=== PATIENT | male | born 1950 | race Caucasian/White ===

== ENCOUNTER 2019-02-07 10:29 | Emergency (ER) | payer MEDICARE, OTHER, SELFPAY ==
[2019-02-07] VITALS (26 sets, daily range): BP systolic 109–131; BP diastolic 59–84; PULSE 57–70; RESP 11–21; TEMP 36.7; O2SAT 95–100
--- NOTE | 2019-02-07 10:42 | ED.GENADUL_ITS ---
Discharge Plan Disposition Patient Disposition: HOME Condition: Stable Discharge Details Chief Complaint: Dizzy/Sync Clinical Impression: Medication reaction, Fall Primary Care Provider: Dahlia,Local ED Provider: Varun Russo Home Meds and New Rx's Prescriptions: Continued ascorbic acid (vitamin C) [Vitamin C] 1,000 mg Tablet 500 mg PO DAILY RF: 0 simvastatin 20 mg Tablet 20 mg PO QHS RF: 0 lisinopril 10 mg Tablet 10 mg PO DAILY RF: 0 vitamin B complex Tablet 1 tab PO DAILY RF: 0 diphenhydramine-acetaminophen [Tylenol PM Extra Strength] 25-500 mg Tablet 1 tab PO QHS PRNRF: 0 multivitamin Capsule 1 cap PO QAM RF: 0 cholecalciferol (vitamin D3) [Vitamin D3] 1,000 unit Capsule 400 unit PO DAILY RF: 0 [place]-3 Fish Oil 300-1,000 mg Capsule 1 cap PO DAILY AM RF: 0 Discharge Instructions Instructions: Abrasion (ED) Additional Instructions: May apply antibiotic ointment to left eyebrow abrasion for 2 to 3 days time. Continue your regular medications. Return for any acute concerns Medical Decision Making 68-year-old male presents from the cancer center. He had received 2 mg of Ativan as a sherly-procedure medicine for implantation of prostate radiation targets. He denies true loss of conscious. He says he sank forward onto the ground and struck his head. He has mild left frontal aching discomfort and a supraorbital abrasion. Vital signs are normal. His exam is reassuring without focal neurologic deficit Patient had IV access established, given fluids, referred for laboratory testing, chest x-ray, head CT. CT reveals no acute intracranial findings. Chest x-ray unremarkable. Lab reveals a white count of 8, hematocrit 45, platelets 187. Sodium 137, potassium 4.1, chloride 102, bicarb 27, BUN 23, creatinine 1.3, troponin negative. Patient improving with fluids. He has not injured himself beyond an abrasion to the left supraorbital region. He ate some lunch and was improved. Stable for discharge to home. Lab Data Lab results reviewed: Yes I reviewed the patient's lab results. Laboratory Results - last 24 hr 02/07/19 02/07/19 10:50 10:50 WBC 8.36 RBC 5.10 Hgb 15.8 Hct 45.2 MCV 88.6 MCH 31.0 MCHC 35.0 RDW 13.4 Plt Count 187 MPV 10.9 Immature Gran % 0.2 Neutrophils % 86.0 Lymphocytes % 9.9 Monocytes % 3.3 Eosinophils % 0.4 Basophils % 0.2 Absolute Neutrophils 7.18 H Absolute Lymphocytes 0.83 L Absolute Monocytes 0.28 Absolute Eosinophils 0.03 Absolute Basophils 0.02 Sodium 137 Potassium 4.1 Chloride 102 Carbon Dioxide 27.0 Anion Gap 8.0 BUN 23 H Creatinine 1.39 H Estimated GFR/1.73 m2 50.82 Glucose 144 H Calcium 9.2 Magnesium 1.9 Total Bilirubin 0.7 AST 16 ALT 31 Alkaline Phosphatase 67 Troponin I < 0.05 Total Protein 7.2 Albumin 3.8 ECG Data Attestation: I personally reviewed and interpreted this ECG (s) as follows: Interpretation: Normal sinus rhythm with a rate of 61, the QRS is narrow, there is no ST segment changes HPI General Mode of arrival: EMS . Date/Time Provider Initiated Documentation: 02/07/19 10:39 . Limitations to Documentation: no limitations . Information obtained by: patient . History of Present Illness 68 year old M presents to the emergency department with the chief complaint of Near syncope with fall , described as mild, Quality is described as dull, and is local ized to the head and left. Patient reports no radiation. Patient started experiencing this minute(s) and it has been constant. No relieving factors improve symptom(s), No exacerbating factors reported . Patient notes no other symptoms.. Patient did receive the following treatments prior to arrival, none Related Data Home Medications Medication Instructions Recorded Confirmed [place]-3 Fish Oil 1 cap PO DAILY AM 02/07/19 02/07/19 ascorbic acid (vitamin C) [Vitamin 500 mg PO DAILY 02/07/19 02/07/19 C] cholecalciferol (vitamin D3) 400 unit PO DAILY 02/07/19 02/07/19 [Vitamin D3] diphenhydramine-acetaminophen 1 tab PO QHS PRN 02/07/19 02/07/19 [Tylenol PM Extra Strength] lisinopril 10 mg PO DAILY 02/07/19 02/07/19 multivitamin 1 cap PO QAM 02/07/19 02/07/19 simvastatin 20 mg PO QHS 02/07/19 02/07/19 vitamin B complex 1 tab PO DAILY 02/07/19 02/07/19 Allergies Allergy/AdvReac Type Severity Reaction Status Date / Time No Known Allergies Allergy Unverified 02/07/19 10:36 General Stated Complaint: Dizzy/Sync WEST: 3 Review of Systems Review of Systems 6 systems reviewed and otherwise negative FOR[facility]LY [facility] Social History Smoking/Tobacco Use Status: Never Drug use: Never Substance use type: does not use Do you feel safe at home: Yes Exam Narrative Exam Narrative: GEN: awake, alert, oriented 3. Pleasant, well groomed, interactive. HEAD: Normocephalic, abrasion left superior orbital rim ENT: Mucous membranes moist, oropharynx unremarkable, External ear exam unremarkable EYES: PERRL, EOMI NECK: Full ROM, no MIRTHA, no menigismus CHEST/RESP: Nontender, clear to auscultation bilateral, no wheeze/rhonchi/rales CARDIOVASCULAR: RRR, no murmur, rub fay. 2+ Rad pulse bilateral ABDOMEN: Soft, nontender, no mass. +Bowel sounds EXT: Full ROM, no edema, no rash Neuro: Grossly normal neurologic exam, conversant, interactive. Psych: Speech fluent, thoughts congruent, affect normal Course Vital Signs Temperature 36.7 C 02/07/19 10:32 Pulse 61 02/07/19 10:32 Respiratory Rate 14 02/07/19 10:32 Blood Pressure 116/75 02/07/19 10:32 Pulse Oximetry 96 02/07/19 10:32 Temperature 36.7 C 02/07/19 10:32 Temperature Source Skin 02/07/19 10:32 Pulse 61 02/07/19 10:32 Respiratory Rate 14 02/07/19 10:32 Blood Pressure 116/75 02/07/19 10:32 Blood Pressure Position Supine 02/07/19 10:32 Pulse Oximetry 96 02/07/19 10:32 Oxygen Delivery Method Room Air 02/07/19 10:32 Oxygen Flow Rate 0 02/07/19 10:32 Pain Level 0 02/07/19 10:32
--- NOTE | 2019-02-07 11:16 | DI.CT_ITS ---
SYMPTOMS/DIAGNOSIS: LEFT FRONTAL TRAUMA S/P FALL, NEAR SYNCOPE CRANIAL CT: A noncontrast cranial CT was performed. The ventricular system is normal in appearance. There is no evidence of an intracranial mass lesion. There is no evidence of a subdural or epidural hematoma. No focal areas of decreased attenuation are seen. CONCLUSION: Normal noncontrast cranial CT.
[2019-02-07 11:19] LABS: Abs Immature Grans 0.02 k/cumm (0.0-0.09); Absolute Basophil Count 0.02 k/cumm (0.0-0.2); Absolute Eosinophil Count 0.03 k/cumm (0.0-0.7); Absolute Lymphocyte Count 0.83 k/cumm (1.2-3.4); Absolute Monocyte Count 0.28 k/cumm (0.11-0.7); Absolute Neutrophil Count 7.18 k/cumm (1.2-6.7); Basophils % 0.2; Eosinophils % 0.4; HCT 45.2 % (40.0-50.0); HGB 15.8 g/dL (13.5-17.5); Immature Grans % 0.2; Lymphocytes % 9.9; Mean Corpuscular Volume 88.6 fL (80-95); Mean Platelet Volume 10.9 fL (8.0-11.0); Monocytes % 3.3; Platelet Count 187 x1000/uL (130-400); RBC Distribution Width 13.4 % (11.8-14.1); White Blood Cell Count 8.36 k/cumm (4.4-10.8)
--- NOTE | 2019-02-07 11:24 | DI.RAD_ITS ---
SYMPTOMS/DIAGNOSIS: NEAR SYNCOPE PA AND LATERAL CHEST: The heart is normal in size. The lungs are clear. The mediastinal structures and pleura appear intact. CONCLUSION: Normal chest.
[2019-02-07] MEDS: Normal Saline 1,000 ML 150 ML IV (11:45)
[2019-02-07 11:46] LABS: ALT 31 U/L (12-78); AST 16 U/L (15-37); Albumin 3.8 g/dL (3.4-5.0); Alkaline Phosphatase 67 U/L (46-116); BUN 23 mg/dL (7-18); Bilirubin, Total 0.7 mg/dL (0.2-1.0); CREATININE 1.39 mg/dL (0.70-1.30); Calcium 9.2 mg/dL (8.5-10.1); Chloride 102 mmol/L (98-107); Estimated GFR 50.82 (mL/min/1.73m2); Glucose 144 mg/dL (70-100); Magnesium 1.9 mg/dL (1.8-2.4); Potassium 4.1 mmol/L (3.5-5.1); Sodium 137 mmol/L (136-145); Total Protein 7.2 g/dL (6.4-8.2)
[2019-02-07 11:56] LABS: Troponin I < 0.05 ng/mL (0.00-0.06)
== END 2019-02-07 13:40 | disposition home or self-care (01) ==
PROVIDERS: Emergency Provider Emergency Medicine
DX: R42 Dizziness and giddiness (principal); T42.4X5A Adverse effect of benzodiazepines, initial encounter; S00.81XA Abrasion of other part of head, initial encounter; W01.198A Fall on same level from slipping, tripping and stumbling with subsequent striking against other object, initial encounter
CPT/HCPCS: 36415; 80053; 96360; 96361; 99285; 70450; 71046; 83735; 84484; 85025; 99284